=== PATIENT | female | born 1990 | race African-American/Black ===

== ENCOUNTER 2017-04-11 09:03 | Emergency (ER) | payer OTHER ==
[~2017-04-11] VITALS: Ht 170.2 cm; Wt 89.5 kg
[2017-04-11 09:04] VITALS: BP 129/75; PULSE 70; RESP 20; TEMP 98.7; O2SAT 100
[2017-04-11] MEDS ORDERED: SODIUM CHLOR 0.9% 1000 ML INJ 1,000 ML IV SCH (09:26)
[2017-04-11] MEDS ORDERED: SODIUM CHLORIDE 0.9% FLUSH 10 ML FLUSH IV FLUSH PRN (09:30)
[2017-04-11] MEDS ORDERED: ONDANSETRON HCL 4 MG/2 ML VIAL IVP ONE (09:30)
--- NOTE | 2017-04-11 09:30 | PD ---
HPI Chief Complaint: GI Complaint Time Seen by Provider: 09:17 Travel History International Travel<30 days: No Contact w/Intl Traveler<30days: No Traveled to known affect area: No History of Present Illness HPI 27-year-old female with no significant past medical history, here for evaluation of nausea, vomiting, and lower back pain. Symptoms have been going on for over the last week. She denies fevers or chills. No urinary symptoms. No trauma. No history of abdominal surgeries. No vaginal discharge. She is having light vaginal spotting. LMP was last month. Emesis and bowel movements are nonbloody. No recent travel. No abdominal pain. PFSH Past Medical History Diminished Hearing: No Gastrointestinal Disorders: Yes Tetanus Vaccination: < 5 Years Influenza Vaccination: Yes ?: Not LMP: 03/13/17-03/16/17 Menopausal: No : 1 Miscarriage: 0 : 0 Past Surgical History Section: Yes (x 1) Genitourinary Surgery: Yes (gastro bypass) Social History Alcohol Use: No Tobacco Use: No Substance Use: No Allergies-Medications (Allergen,Severity, Reaction): Coded Allergies: No Known Allergies (Unverified , 04/11/17) Reported Meds & Prescriptions Reported Meds & Active Scripts Active No Active Prescriptions or Reported Medications Review of Systems Except as stated in HPI: all other systems reviewed are Neg Physical Exam Narrative GENERAL: Well-developed, well-nourished, comfortable, no acute distress. SKIN: Focused skin assessment warm/dry. No rash. HEAD: Atraumatic. Normocephalic. EYES: Pupils equal and round. No scleral icterus. No injection or drainage. ENT: Mucous membranes pink and moist. NECK: Trachea midline. No JVD. CARDIOVASCULAR: Regular rate and rhythm. RESPIRATORY: No accessory muscle use. Clear to auscultation. Breath sounds equal bilaterally. GASTROINTESTINAL: Abdomen soft, nondistended. Mild lower abdominal tenderness. No rebound or guarding. Rest of abdomen is soft and nontender. MUSCULOSKELETAL: No obvious deformities. No clubbing. No cyanosis. No edema. No midline vertebral step-off or tenderness. No CVA tenderness. Normal range of motion and muscle strength in bilateral upper and lower extremities. NEUROLOGICAL: Awake and alert. No obvious cranial nerve deficits. Motor grossly within normal limits. Normal speech. PSYCHIATRIC: Appropriate mood and affect; insight and judgment normal. Data Data Last Documented VS Vital Signs Date Time Temp Pulse Resp B/P Pulse Ox O2 Delivery O2 Flow Rate FiO2 04/11/17 09:38 16 99 Room Air 04/11/17 09:04 98.7 70 129/75 Orders Beta Hcg (Quant/Titer) (04/11/17:26) Complete Blood Count With Diff (04/11/17:) Comprehensive Metabolic Panel (04/11/17) Lipase (04/11/17) Prothrombin Time / Inr (Pt) (04/11/17) Act Partial Throm Time (Ptt) (04/11/17) Urinalysis - C+S If Indicated (04/11/17) Iv Access Insert/Monitor (04/11/17) Ecg Monitoring (04/11/17) Oximetry (04/11/17) Ondansetron Inj (Zofran Inj) (04/11/17 09:30) Sodium Chlor 0.9% 1000 Ml Inj (Ns 1000 M (04/11/17:) Sodium Chloride 0.9% Flush (Ns Flush) (04/11/17:30) Labs Laboratory Tests Test 04/11/17 04/11/17 09:30 10:10 White Blood Count 5.1 TH/MM3 Red Blood Count 4.15 MIL/MM3 Hemoglobin 10.3 GM/DL Hematocrit 32.1 % Mean Corpuscular Volume 77.3 FL Mean Corpuscular Hemoglobin 24.9 PG Mean Corpuscular Hemoglobin 32.2 % Concent Red Cell Distribution Width 13.6 % Platelet Count 245 TH/MM3 Mean Platelet Volume 9.8 FL Neutrophils (%) (Auto) 41.1 % Lymphocytes (%) (Auto) 46.6 % Monocytes (%) (Auto) 8.5 % Eosinophils (%) (Auto) 3.1 % Basophils (%) (Auto) 0.7 % Neutrophils # (Auto) 2.1 TH/MM3 Lymphocytes # (Auto) 2.4 TH/MM3 Monocytes # (Auto) 0.4 TH/MM3 Eosinophils # (Auto) 0.2 TH/MM3 Basophils # (Auto) 0.0 TH/MM3 CBC Comment DIFF FINAL Differential Comment Prothrombin Time 11.3 SEC Prothromb Time International 1.0 RATIO Ratio Activated Partial 29.4 SEC Thromboplast Time Sodium Level 139 MEQ/L Potassium Level 4.9 MEQ/L Chloride Level 107 MEQ/L Carbon Dioxide Level 27.0 MEQ/L Anion Gap 5 MEQ/L Blood Urea Nitrogen 9 MG/DL Creatinine 0.65 MG/DL Estimat Glomerular Filtration 134 ML/MIN Rate Random Glucose 82 MG/DL Calcium Level 8.9 MG/DL Total Bilirubin 0.6 MG/DL Aspartate Amino Transf 32 U/L (AST/SGOT) Alanine Aminotransferase 18 U/L (ALT/SGPT) Alkaline Phosphatase 103 U/L Total Protein 8.0 GM/DL Albumin 3.6 GM/DL Lipase 85 U/L Human Chorionic Gonadotropin, LESS THAN 1 Quant MIU/ML Urine Color YELLOW Urine Turbidity CLEAR Urine pH 7.0 Urine Specific [place] 1.023 Urine Protein TRACE mg/dL Urine Glucose (UA) NEG mg/dL Urine Ketones NEG mg/dL Urine Occult Blood MOD Urine Nitrite NEG Urine Bilirubin NEG Urine Urobilinogen 2.0 MG/DL Urine Leukocyte Esterase TRACE Urine RBC 72 /hpf Urine WBC 6 /hpf Urine Squamous Epithelial <1 /hpf Cells Urine Bacteria RARE /hpf Urine Mucus FEW /lpf Microscopic Urinalysis Comment CULT NOT INDICATED MDM Medical Decision Making Medical Screen Exam Complete: Yes Emergency Medical Condition: Yes Differential Diagnosis Gastroenteritis, dehydration, UTI, pyelonephritis, /ectopic Narrative Course Vital signs show heart rate 70, blood pressure 129/75, pulse ox 100% on room air , oral temp of 98.7F. CBC shows WBC 5.1, hemoglobin 10.3, hematocrit 32.1, platelets 245. CMP is unremarkable. Lipase is 85. Beta hCG is negative. UA Moderate occult blood, trace site esterase, 72 RBCs, 6 WBCs, rare bacteria, few mucus, negative nitrites. Patient is currently having some vaginal spotting, likely originating to the UA findings. This is not suggestive of UTI. Patient was given a liter of normal saline IV and IV Zofran and is feeling much better. She is tolerating Gatorade without difficulty. She is overall very well-appearing. I do not believe that there is an acute surgical process to warrant imaging at this time. She reports history of anemia. She is stable for discharge home with outpatient follow-up with a primary care physician this week. She was informed on when to return to the emergency department. She verbalizes understanding and agreement with plan. Diagnosis Primary Impression: Nausea and vomiting Qualified Code: R11.2 - Nausea and vomiting, intractability of vomiting not specified, unspecified vomiting type Additional Impression: Diarrhea Qualified Code: R19.7 - Diarrhea, unspecified type Referrals: Primary Care Physician 3 days Additional Instructions: Follow-up with a primary care physician this week. Stay hydrated with plenty of fluids. Return to the emergency department for worsening symptoms or any other concerns. Scripts Ondansetron Odt (Zofran Odt)4 Mg Tab4 Mg SL Q8HR PRN (Nausea/Vomiting) #20 TAB Ref 0 Prov:Albert Lee MD 04/11/17 Disposition: 01 DISCHARGE HOME Condition: Stable Albert Lee MD April 11, 2017 09:30
[2017-04-11 09:38] VITALS: RESP 16; O2SAT 99
[2017-04-11 09:44] LABS: AUTOMATED NEUTROPHIL # 2.1 TH/MM3 (1.8-7.7); BASOPHIL % 0.7 % (0.0-2.0); EOSINOPHIL # 0.2 TH/MM3 (0-0.4); EOSINOPHIL % 3.1 % (0.0-4.0); HEMATOCRIT 32.1 % (35.0-46.0); HEMO FLAGS DIFF FINAL; LYMPH % 46.6 % (9.0-44.0); LYMPHOCYTE # 2.4 TH/MM3 (1.0-4.8); MEAN CELL VOLUME 77.3 FL (80.0-100.0); MEAN CORPUSCULAR HEMOGLOBIN 24.9 PG (27.0-34.0); MEAN CORPUSCULAR HGB CONC 32.2 % (32.0-36.0); MONO % 8.5 % (0.0-8.0); NEUT % 41.1 % (16.0-70.0); PLATELET COUNT 245 TH/MM3 (150-450); RED BLOOD COUNT 4.15 MIL/MM3 (4.00-5.30); RED CELL DISTRIBUTION WIDTH 13.6 % (11.6-17.2); WHITE BLOOD COUNT 5.1 TH/MM3 (4.0-11.0)
[2017-04-11 09:54] LABS: APTT (PATIENT) 29.4 SEC (24.3-30.1); PROTHROMBIN TIME - PATIENT 11.3 SEC (9.8-11.6)
[2017-04-11 10:03] LABS: ALKALINE PHOSPHATASE 103 U/L (45-117); ALT (GPT) 18 U/L (10-53); ANION GAP 5 MEQ/L (5-15); AST (GOT) 32 U/L (15-37); BETA HCG QUANT LESS THAN 1 MIU/ML (0-5); BLOOD UREA NITROGEN 9 MG/DL (7-18); CHLORIDE 107 MEQ/L (98-107); GLOMERULAR FILTRATION RATE 134 ML/MIN (>89); SODIUM (NA) 139 MEQ/L (136-145); TOTAL BILIRUBIN ADULT 0.6 MG/DL (0.2-1.0)
[2017-04-11 10:06] LABS: POTASSIUM 4.9 MEQ/L (3.5-5.1)
[2017-04-11 10:57] LABS: BACTERIA, URINE RARE /hpf; BLOOD, URINE MOD (NEG); GLUCOSE,URINE NEG (NEG); KETONE, URINE NEG (NEG); MUCUS URINE FEW /lpf (OCC); NITRITE,URINE NEG (NEG); SQUAMOUS EPITHELIAL CELL URINE <1 /hpf (0-5); URINE COLOR YELLOW (YELLW/STRAW)
[2017-04-11 10:58] LABS: COMMENT (UR) CULT NOT INDICATED; CULTURE IF INDICATED CULT NOT INDICATED
[2017-04-11] MEDS ORDERED: ZOFR4TAB3 SL (11:04)
== END 2017-04-11 11:14 | disposition home or self-care (01) ==
LOC: NEPD 09:03
DX: R11.2 Nausea with vomiting, unspecified (principal); R19.7 Diarrhea, unspecified; M54.5 Low back pain; Z87.19 Personal history of other diseases of the digestive system; Z86.2 Personal history of diseases of the blood and blood-forming organs and certain disorders involving the immune mechanism
CPT/HCPCS: 80053; 81001; 83690; 84702; 85025; 85610; 85730; 96361; 96374; 99284; J2405; J7030

== ENCOUNTER 2017-10-30 09:12 | Emergency (ER) | payer OTHER ==
[~2017-10-30] VITALS: Ht 177.8 cm; Wt 95.0 kg
[~2017-10-30 09:12] MED LIST: FLUC150T PO; METR1TAB76 PO; ZOFR4TAB3 SL
[2017-10-30 09:22] VITALS: BP 132/79; PULSE 70; RESP 16; TEMP 97.9
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
[2017-10-30] MEDS ORDERED: IBUP-232 PO (10:19)
[2017-10-30] MEDS ORDERED: MAPA500T13 PO (10:19)
[2017-10-30 11:13] VITALS: BP 114/72
== END 2017-10-30 11:14 | disposition home or self-care (01) ==
LOC: NEPD 09:12
DX: S60.222A Contusion of left hand, initial encounter (principal); V44.5XXA Car driver injured in collision with heavy transport vehicle or bus in traffic accident, initial encounter; W22.11XA Striking against or struck by driver side automobile airbag, initial encounter
CPT/HCPCS: 73130; 99284

== ENCOUNTER 2017-11-17 09:24 | Emergency (ER) | payer OTHER ==
[~2017-11-17] VITALS: Ht 170.2 cm; Wt 93.0 kg
[~2017-11-17 09:24] MED LIST changes: -FLUC150T PO; +IBUP-232 PO; +MAPA500T13 PO; -METR1TAB76 PO; -ZOFR4TAB3 SL
[2017-11-17 09:26] VITALS: BP 125/69; PULSE 77; RESP 18; TEMP 98.5; O2SAT 100
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
== END 2017-11-17 10:35 | disposition home or self-care (01) ==
LOC: NEPK 09:24
DX: S93.401A Sprain of unspecified ligament of right ankle, initial encounter (principal); V89.2XXA Person injured in unspecified motor-vehicle accident, traffic, initial encounter
CPT/HCPCS: 29515; 73610